=== PATIENT | female | born 1950 | race Two or more races ===

== ENCOUNTER 2025-03-14 10:00 | Day surgery (SDC) | payer OTHER ==
[2025-03-08 10:53] VITALS: BP 170/74
[~2025-03-14] VITALS: Ht 167.6 cm; Wt 61.2 kg
[~2025-03-14 10:00] MED LIST: CELECOXIB200 MG PO; INTESTINEX680 M1 PO; NEURONTIN300 MG PO; TRAM1TAB98 PO
[2025-03-14] MEDS ORDERED: CEFTRIAXONE SODIUM 2,000 MG VIAL ONE (11:19)
[2025-03-14] MEDS ORDERED: METRONIDAZOLE/SODIUM CHLORIDE 500 MG/100 ML PIGGYBACK IV ONE (11:19)
[2025-03-14] MEDS ORDERED: HEMOSTATIC MATRIX 1 KIT KIT TOP ONE (11:31)
[2025-03-14] MEDS ORDERED: POVIDONE-IODINE 118 ML BOTT TOP ONE (11:34)
[2025-03-14] MEDS ORDERED: DIBUCAINE 30 GM TUBE ONE (11:34)
[2025-03-14] MEDS ORDERED: LIDOCAINE HCL 1%/EPINEPHRINE 20ML VIAL IJ ONE (11:34)
[2025-03-14] MEDS ORDERED: BUPIVACAINE HCL/MPF 0.5% 30ML VIAL ONE (11:34)
[2025-03-14] MEDS ORDERED: hydrALAZINE HCL 20 MG VIAL IV ONE (16:00)
[2025-03-14] MEDS ORDERED: ONDANSETRON HCL 2 MG/ML VIAL IV ONE (16:20)
== END 2025-03-14 17:30 | disposition home or self-care (01) ==
LOC: CIR.AMB 10:00
PROVIDERS: ATTEND Surgery
DX: K62.3 Rectal prolapse (principal); K56.1 Intussusception